=== PATIENT | male | born 1975 ===

== ENCOUNTER 2024-01-22 02:56 | Emergency (ER) | payer OTHER, SELFPAY ==
[2024-01-22 02:57] VITALS: BP 142/106
--- NOTE | 2024-01-22 03:59 | ED.MUSCINJ ---
HPI-Injury
General
Chief Complaint: Musculo-Skeletal Complaint
Source: patient
Time Seen by Provider: 01/22/24 03:59
History of Present Illness-Injury
Initial Injury comments:
Pleasant 49-year-old male presents to the emergency department with right thumb bruising. He states that yesterday he inadvertently closed the car door on his thumb. He went to urgent care and had an x-ray that he states was negative. He is
concerned because it is very painful and the thumb is black. Denies any other injuries.
Review of Systems
Review of Systems
Allergies reviewed?: Yes
All Other Systems: ROS reviewed and negative except as documented in HPI and ROS
Hematologic/Lymphatic: Reports bruising
Skin Exam
other
Other:
Subungual hematoma right thumb
Phy Exam
General Physical Exam
General Presentation: well appearing and moderate distress
General age: appears stated age
General Skin: warm and dry
General Habitus: normal
Pulmonary Exam
Pulmonary Exam: no respiratory distress and no cough
Neurological Exam
Neurological Exam: alert and oriented x3
Musculoskeletal Exam
Musculoskeletal Exam: full ROM and neuro vasc intact
Skin Exam
Skin Exam: normal color, warm/dry and other (Subungual hematoma to the right thumb)
Psychiatric Exam
Psychiatric Exam: normal mood/affect
*Critical Care Note
Total Time (30-74mins, 75-104mins- exclusive of procedures): Not Applicable
Update Note
Update Note:
Subungual hematoma was relieved with hot cautery trephination. Patient tolerated procedure well with no immediate adverse effects. Tetanus shot up-to-date.
ED Attending Note
-
Portions of this chart may have been created with voice recognition software.� Occasional wrong word or��sound alike� substitutions may have occurred due to the inherent limitations of voice recognition software.
Discharge Plan
Departure
Patient Disposition: Home (Routine Discharge)
Date of Disposition: 01/22/24
Time of Disposition: 04:01
Patient with high blood pressure during this ER visit?: Yes
Discharge Problem:
Subungual hematoma
Instructions: Bruising Under the Nail
Referrals:
[facility] [Outside]
[facility] [Outside]
Activity Restrictions/Additional Instructions:
It was a pleasure meeting you and taking part in your care. We hope for your continued healing and wellness.
Please read discharge instructions in their entirety. However, they are for general education and may not describe your exact diagnosis at discharge. Information on your ER visit and medical conditions were discussed with you along with appropriate
follow up information...
If indicated, please take your medications as instructed and indicated on discharge paperwork.
Please schedule a follow up appointment as directed. Call to schedule an appointment
Please return to the emergency department with ANY change in, persisting, or worsening of symptoms. If any of your symptoms do not improve, or persist, or become more severe within 6-12 hours, please return to the emergency department for further
care.
Please return to the emergency department if you develop a headache, neck pain/stiffness, fever greater than 100.4F, chest pain, shortness of breath, persistent nausea, vomiting, slurred speech, difficulty walking, numbness/tingling, weakness, signs
of infection or any other symptoms that are worrisome to you.
If you have any questions or concerns please do not hesitate to call the Hospital at or E-mail me directly at
Interventions
Interventions:
*Risk Screen - Suicide Last Done: 01/22/24 02:57
*Neglect/Abuse Screening Last Done: 01/22/24 02:57
Discharge Date and Time
Print Language: EMIRATI
[2024-01-22] MEDS: ADACEL 0.5 ML IM (04:53)
== END 2024-01-22 05:15 | disposition home or self-care (01) ==
LOC: EMR 02:56
PROVIDERS: EMERGENCY PHYSICIAN Student in an Organized Health Care Education/Training Program; FAMILY PHYSICIAN Family Medicine
DX: S60.111A Contusion of right thumb with damage to nail, initial encounter (principal); W23.2XXA Caught, crushed, jammed or pinched between a moving and stationary object, initial encounter; Z23 Encounter for immunization
CPT/HCPCS: 99283; 11740; 90471; 90715

== ENCOUNTER → 2024-02-11 06:58 | Outpatient (REF) | payer BC, SELFPAY | LOC: HWRCS 06:58 | PROVIDERS: ATTENDING PHYSICIAN Student in an Organized Health Care Education/Training Program; FAMILY PHYSICIAN Family Medicine | DX: R07.89 Other chest pain (principal); R00.2 Palpitations | CPT/HCPCS: 93306 ==